=== PATIENT | female | born 1995 | race Caucasian/White ===

== ENCOUNTER 2018-03-12 09:43 | Emergency (ER) | payer BC ==
[2018-03-12] MEDS ORDERED: Ondansetron PF 4 MG/2 ML Vial ONE (10:10)
[2018-03-12 10:20] LABS: #Eosinphils 0.1 thou/uL (0.0-0.7); #Lymphocytes 0.6 thou/uL (1.20-3.40); #Monocytes 0.8 thou/uL (0.11-0.59); #Neutrophils 10.6 thou/uL (1.40-6.50); %Basophils 0.1 % (0.0-1.0); %Eosinophils 0.8 % (0.0-10.0); %Lymphocytes 4.6 % (28.0-48.0); %Monocytes 6.3 % (0.0-4.0); %Neutrophils 88.2 % (31.0-61.0); Hemoglobin 13.2 g/dL (12.0-16.0); Mean Corpuscular HGB CONC 33.5 g/dL (32.0-36.0); Mean Corpuscular Hemoglobin 28.6 pg (25.0-35.0); Mean Corpuscular Volume 85.4 fL (78.0-98.0); Mean Platelet Volume 6.3 fL (7.4-10.4); Platelet Count 424 thou/uL (130-400); RBC Distribution Width 12.4 % (11.5-14.5)
[2018-03-12 10:29] LABS: BHCG - Serum Negative (NEGATIVE); Pregs Control Background? CLEAR/WHITE (CLR/WHITE); Pregs Control Bar Appear? YES (CONTROL BAR)
[2018-03-12 10:43] LABS: ALT (SGPT) 7 U/L (8-55); AST (SGOT) 14 U/L (5-34); Albumin 3.9 g/dL (3.5-5.0); Alkaline Phosphatase 63 U/L (40-150); Anion Gap 12 mmol/L (10-20); BUN (Urea Nitrogen) 11 mg/dL (7.0-18.7); Bilirubin, Total 0.6 mg/dL (0.2-1.2); Calc. Creatinine Clearance 0 mL/min (70-130); Carbon Dioxide 21 mmol/L (22-29); Chloride 109 mmol/L (98-107); Estimated GFR-MDRD Greater than 90; Globulin 3.1 g/dL (2.4-3.5); Glucose 111 mg/dL (70-105); Lipase 11 U/L (8-78); Potassium 3.8 mmol/L (3.5-5.1); Sodium 138 mmol/L (136-145)
[2018-03-12] MEDS ORDERED: Promethazine HCl 25 MG/ML VIAL ONE (12:30)
[2018-03-12] MEDS ORDERED: Iopamidol 370 76% 100 ML VIAL ONE (13:42)
--- NOTE | 2018-03-12 14:37 | CT ---
CT OF THE ABDOMEN AND PELVIS WITH IV CONTRAST: DATE: 03/12/2018. PROVIDED CLINICAL HISTORY: Abdominal pain. FINDINGS: Comparison is made with the examination dated 02/05/2016. The visualized lung bases are free of significant opacity. The solid abdominal organs demonstrate an unremarkable CT appearance. Evaluation is limited on the basis of paucity of intraperitoneal fat and lack of IV contrast material . There is no evidence for bowel obstruction. Fluid density is seen within portions of the colon wh ich can be seen in the setting of a diarrheal illness. The partially visualized appendix appears nor mal. There is no evidence for inflammatory fat stranding, free fluid, or free air. The osseous structures demonstrate no concerning lytic or blastic lesions. IMPRESSION: Fluid density is seen within portions of the colon which can be seen in the setting of a diarrheal il lness. The examination is otherwise unremarkable with limitations as above. POS: MORENO
== END 2018-03-12 14:50 | disposition home or self-care (01) ==
LOC: ERS 09:43
DX: R11.2 Nausea with vomiting, unspecified (principal); R19.7 Diarrhea, unspecified
CPT/HCPCS: 74177; 80053; 83690; 84703; 85025; 96361; 96365; 96372; 96375; J2405; J2550

== ENCOUNTER 2018-03-14 09:25 | Outpatient (CLI) | payer BC ==
--- NOTE | 2018-03-14 11:08 | ULT ---
SONOGRAM LEFT BREAST LIMITED: History: Left breast lump. FINDINGS: Sonographic evaluation of the inferior lateral aspect of the left breast in region of palpable concer n shows dense fibroglandular tissue. A well circumscribed oval homogeneous hypoechoic mass with poste rior acoustic enhancement is 0.9 cm length x 0.8 cm depth. It has nonaggressive characteristics of a fibroadenoma. IMPRESSION: 1. Fibroadenoma left breast 4 o'clock position. 2. BIRADS category 2 - benign findings. POS: MORENO
== END 2018-03-14 09:26 | disposition home or self-care (01) ==
LOC: BICULT 09:25
PROVIDERS: ATTEND Family Medicine
DX: N63.20 Unspecified lump in the left breast, unspecified quadrant (principal); D24.1 Benign neoplasm of right breast

== ENCOUNTER 2019-05-17 11:38 | Outpatient (CLI) | payer BC | END 2019-05-17 11:39 | disposition home or self-care (01) | LOC: DTY/OP 11:38 | PROVIDERS: ATTEND Family Medicine | DX: R62.7 Adult failure to thrive (principal) | CPT/HCPCS: 97802 ==